=== PATIENT | male | born 1960 | race Caucasian/White ===

== ENCOUNTER 2024-03-18 13:54 | Outpatient (CLI) | payer BC ==
--- NOTE | 2024-03-18 14:18 | XRAY Report ---
PROCEDURE: Shoulder 2+V RT INDICATIONS: DISLOCATION OF RIGHT SHOULDER JOINT TECHNIQUE: 3 views of the shoulder were acquired. COMPARISON: None. FINDINGS: Bones: No fractures or dislocations. No suspicious bony lesions. Visualized ribs appear intact. Gl enohumeral and acromioclavicular joint space narrowing with associated osteophytosis. Soft tissues: No suspicious soft tissue calcifications. The visualized lungs are within normal limi ts. IMPRESSION: No acute bony abnormality. Normal glenohumeral alignment. Moderate shoulder osteoarthritis. Reviewed by: Sameer Sharp MD on 03/18/2024 2:17 PM PDT Approved by: Sameer Sharp MD on 03/18/2024 2:17 PM PDT Station ID: [id number]
== END 2024-03-18 13:55 | disposition home or self-care (01) ==
LOC: DI.S 13:54
DX: M19.011 Primary osteoarthritis, right shoulder (principal)